=== PATIENT | male | born 1985 ===

== ENCOUNTER 2024-08-18 06:43 | Emergency (ER) | payer SELFPAY ==
--- NOTE | 2024-08-18 06:45 | EKG_ITS ---
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
[2024-08-18 06:59] VITALS: BP 136/87; PULSE 117; RESP 19; TEMP 36.8; O2SAT 99; BMI 27.4
--- NOTE | 2024-08-18 07:04 | PD.EDRME ---
Rapid Medical Screening Exam RME Arrival date/time: 08/18/24 06:43 39-year-old male presents emergency department complaints of chest pain Chief Complaint: Chest Pain Time Seen by Provider: 08/18/24 06:57 Vital signs: Vital Signs Temperature 98.3 F 08/18/24 06:59 Pulse Rate 117 H 08/18/24 06:59 Respiratory Rate 19 08/18/24 06:59 Blood Pressure 136/87 H 08/18/24 06:59 Pulse Oximetry (%) 99 08/18/24 06:59 Oxygen Delivery Method Room Air 08/18/24 06:59
--- NOTE | 2024-08-18 07:05 | PC.NURSE ---
Security Hirsch stated pt. walked out of ER.
== END 2024-08-18 07:05 | disposition left against medical advice (07) ==
PROVIDERS: Emergency Provider Emergency Medicine
DX: R07.9 Chest pain, unspecified (principal); Z53.29 Procedure and treatment not carried out because of patient's decision for other reasons
CPT/HCPCS: 80053; 80307; 80320; 83735; 83880; 84484; 85025; 85379; 85610; 85730; 93005; 99281; G0480